=== PATIENT | female | born 1990 | race Two or more races ===

== ENCOUNTER 2018-06-14 19:33 | Emergency (ER) | payer SELFPAY ==
[~2018-06-14] VITALS: Ht 162.6 cm; Wt 63.5 kg
[2018-06-14 20:46] VITALS: BP 108/68
[2018-06-14 21:08] LABS: Urine Bacteria NONE SEEN /hpf (None Seen); Urine Blood 3+ /uL (Negative); Urine Mucus FEW (None Seen); Urine Specific Gravity 1.024 (1.001-1.035); Urine WBC 251 /hpf (0 - 5)
== END 2018-06-14 22:04 | disposition home or self-care (01) ==
LOC: ER 19:33
DX: S31.41XA Laceration without foreign body of vagina and vulva, initial encounter (principal); W22.8XXA Striking against or struck by other objects, initial encounter; Y93.89 Activity, other specified; Y99.8 Other external cause status; Y92.89 Other specified places as the place of occurrence of the external cause
CPT/HCPCS: 81001; 81025